=== PATIENT | female | born 1935 | race Caucasian/White ===

== ENCOUNTER 2017-01-14 15:29 | Inpatient (IN) | payer OTHER ==
[~2017-01-14] VITALS: Ht 172.7 cm; Wt 77.3 kg
[~2017-01-14 15:29] MED LIST: ACE650LQ GT; ACET650T79 PO; ALEGRA; ALEN70SO OR; ASCO250T13 PO; ATOR10TA52 PO; BIOTPOW17; BUME1TAB PO; DICL1GEL26 TOP; DIGO0.1262 PO; DIPH25CA39 PO; FENO160T8 PO; FLOXETINE; FLUT250M9; HYDR500T13 PO; INSUINJ47 SC; INSUINJ48 SC; MAGN400T21 PO; METF-312 PO; METO25TA5 PO; MONT10TA23 PO; MULT-224; OME20GT PO; PREG20SO PO; TEMA15CA; TIZA4CAP7 PO; WARF4TAB33 PO; ZALE10CA44 PO; ZALE5CAP PO; [UNRECOGNIZED DRUG - OTHER] PO
[2017-01-14 16:12] LABS: Basophils # (auto) 0 uL; Basophils % (auto) 0.4 % (0.0-2.0); Eosinophils # (auto) 0 uL; Eosinophils % (auto) 0.6 % (0.0-7.0); Hematocrit 36.9 % (36.0-46.0); Hemoglobin 12.1 g/dL (12.2-16.2); Lymphocytes # (auto) 1.4 uL; Lymphocytes % (auto) 17.7 % (10.0-50.0); Mean Corpuscular Hemoglobin 28.7 pg (28.0-32.0); Mean Corpuscular Hgb Conc. 32.6 g/dL (32.0-36.0); Mean Corpuscular Volume 87.9 fL (80.0-100.0); Mean Platelet Volume 7.7 fL (7.4-10.4); Monocytes # (auto) 0.5 uL; Monocytes % (auto) 6.3 % (0.0-12.0); Neutrophils # (auto) 6.1 uL; Platelet Count (auto) 272 10^3/uL (140-450); Red Cell Distribution Width 14.8 % (11.6-16.0); White Blood Cell 8.1 10^3/uL (4.4-10.8)
[2017-01-14] MEDS ORDERED: DILTIAZEM HCL 25 MG/5 ML VIAL IV ONE (16:15)
[2017-01-14 16:30] LABS: Albumin 3.3 g/dL (3.4-5.0); Calcium 8.8 mg/dL (8.5-10.1); Magnesium 2.3 mg/dL (1.6-2.6); Potassium 4.8 mmol/L (3.5-5.1)
[2017-01-14 16:35] LABS: Bilirubin, Total 0.2 mg/dL (0.2-1.0); Total Protein 7.3 g/dL (6.4-8.2)
[2017-01-14] MEDS ORDERED: ACETAMINOPHEN 325 MG TAB PO ONE (16:45)
[2017-01-14 17:11] LABS: Partial Thromboplastin Time 33.4 sec (22.64-33.71)
[2017-01-14 17:12] LABS: INR 1.92 (0.9-1.15); Prothrombin Time 20.7 sec (9.37-12.3)
[2017-01-14] MEDS ORDERED: POTASSIUM CHLORIDE 8 MEQ TAB PO ONE (18:45)
[2017-01-14] MEDS ORDERED: FUROSEMIDE 40 MG/4 ML VIAL IV ONE (18:45)
[2017-01-14] MEDS ORDERED: DIGOXIN 0.125 MG TAB PO ONE (18:45)
[2017-01-14] MEDS ORDERED: ALENDRONATE SODIUM 10 MG TAB PO SCH (19:00)
[2017-01-14] MEDS ORDERED: ALPRAZolam 0.25 MG TAB PO PRN (19:00)
[2017-01-14] MEDS ORDERED: DEXTROSE (50%) 50ML SYRG IV PRN (19:00)
[2017-01-14] MEDS ORDERED: cefTRIAXone 1GM/50ML D5W 50 ML IV ONE (19:00)
[2017-01-14] MEDS ORDERED: NITROGLYCERIN 0.4 MG SL TAB SL PRN (19:15)
[2017-01-14] MEDS ORDERED: MORPHINE SULF INJ 2 MG/ML SYRINGE 1ML IV PRN ×2 (19:15)
[2017-01-14] MEDS ORDERED: ACETAMINOPHEN 325 MG TAB PO PRN (19:15)
[2017-01-14] MEDS ORDERED: ONDANSETRON HCL 4 MG/2 ML VIAL IV PRN (19:15)
[2017-01-14] MEDS ORDERED: DOCUSATE SOD 100 MG CAP PO PRN (19:15)
[2017-01-14] MEDS ORDERED: HYDROcodone-ACET 5/325MG TAB PO PRN (19:15)
[2017-01-14] MEDS ORDERED: TEMAZEPAM 15 MG CAP PO PRN (19:15)
[2017-01-14] MEDS: MULTIPLE VITAMIN TAB PO SCH (19:36)
[2017-01-14] MEDS ORDERED: LOSARTAN POTASSIUM 25 MG TAB PO ONE (19:45)
[2017-01-14] MEDS ORDERED: FLUoxetine HCL 20 MG CAP PO ONE (19:45)
[2017-01-14] MEDS ORDERED: predniSONE 20 MG TAB PO ONE (19:45)
[2017-01-14] MEDS ORDERED: WARFARIN SODIUM 5 MG TAB PO ONE ×2 (20:00→20:15)
[2017-01-14 20:25] LABS: B-Type Natriuretic Peptide 359.44 pg/mL (0-100); Temperature: 23.4 C (20.0-25.0)
[2017-01-14 22:00] VITALS: BP 144/83
[2017-01-14] MEDS: PREGABALIN PO SCH ×2 (22:00→23:39)
[2017-01-14] MEDS: InsuLIN REG 1unit/0.01ml Soln (100units/ml) SC SCH (22:00)
[2017-01-14] MEDS: DRONEDARONE HCL 400 MG TAB PO SCH (22:00)
[2017-01-14] MEDS ORDERED: FAMOTIDINE 20 MG TAB PO SCH (22:00)
[2017-01-14] MEDS: ACCU-CHEK COMFORT CURVE STRIP VI SCH (22:00)
[2017-01-14 22:27] VITALS: BP 144/83
[2017-01-14 22:38] LABS: Lactic Acid w/Reflex 2.2 mmol/L (0.4-2.0)
[2017-01-14 22:59] LABS: REFLEX LACTIC ACID YES OR NO YES
[2017-01-14 23:35] VITALS: BP 127/78
[2017-01-14] MEDS: FLUTICASONE PROP NASAL SPR 0.05 % (50MCG) 16GM EACHNOSTRI SCH (23:36)
[2017-01-14] MEDS: ATORVASTATIN 20 MG TAB PO SCH (23:36)
[2017-01-14] MEDS: DICLOFENAC SODIUM 100 MG PO SCH (23:38)
[2017-01-14] MEDS: SODIUM CHLOR 0.9% PF (SALINE LOCK) 10ML VIAL IV SCH (23:39)
[2017-01-15] VITALS: BP 150/82
[2017-01-15] MEDS: ALBUTEROL SULF 2.5 MG/0.5ML(0.5%) NEB SOLN NEB SCH ×3 (00:37→11:45)
[2017-01-15] MEDS: BUDESONIDE (INHALATION) 0.5 MG/2 ML NEB NEB SCH ×3 (00:37→23:41)
[2017-01-15] MEDS: IPRATROPIUM BROM 0.5 MG/2.5ML INH SOL NEB SCH ×5 (00:37→23:41)
[2017-01-15 03:22] LABS: Urine RBC None Seen /hpf (0 - 4)
[2017-01-15 04:00] VITALS: BP 126/74
[2017-01-15 04:04] LABS: Urine Bilirubin Negative (Negative); Urine Blood Negative /uL (Negative); Urine Color Yellow (Yellow); Urine Ketone Negative (Negative); Urine Nitrite Negative (Negative); Urine Squamous Epithelial Cell FEW /hpf (<5); Urine Urobilinogen Normal (Negative)
[2017-01-15 04:05] LABS: Urine Glucose 3+ mg/dL (Normal)
[2017-01-15] MEDS ORDERED: PRED1PAK8 PO (04:33)
[2017-01-15] MEDS ORDERED: LOSA25TA9 PO (04:33)
[2017-01-15] MEDS ORDERED: METO2.5T11 PO (04:33)
[2017-01-15] MEDS ORDERED: BETH50TA PO (04:33)
[2017-01-15] MEDS ORDERED: DRON400T PO (04:33)
[2017-01-15] MEDS ORDERED: FER325T PO (04:33)
[2017-01-15] MEDS ORDERED: LEVA1.256 IN (04:33)
[2017-01-15] MEDS ORDERED: FLUT50SP13 (04:33)
[2017-01-15] MEDS ORDERED: ALPR0.254 PO (04:33)
[2017-01-15] MEDS ORDERED: HYDR-531 PO (04:33)
[2017-01-15] MEDS ORDERED: CHOL1TAB42 PO (04:33)
[2017-01-15 05:00] LABS: Albumin 3.3 g/dL (3.4-5.0); BUN/Creatinine Ratio 14.2; Calcium 8.5 mg/dL (8.5-10.1); Lactic Acid w/Reflex 2.6 mmol/L (0.4-2.0); Potassium 5.4 mmol/L (3.5-5.1)
[2017-01-15 05:05] LABS: Bilirubin, Total 0.3 mg/dL (0.2-1.0); Total Protein 7.1 g/dL (6.4-8.2)
[2017-01-15 05:08] LABS: Partial Thromboplastin Time 32.8 sec (22.64-33.71)
[2017-01-15 05:14] LABS: INR 1.98 (0.9-1.15); Prothrombin Time 21.4 sec (9.37-12.3)
[2017-01-15 05:23] LABS: REFLEX LACTIC ACID YES OR NO YES
[2017-01-15 06:32] LABS: Basophils # (auto) 0 uL; Basophils % (auto) 0.3 % (0.0-2.0); Eosinophils # (auto) 0 uL; Eosinophils % (auto) 0.1 % (0.0-7.0); Hematocrit 36.4 % (36.0-46.0); Hemoglobin 11.9 g/dL (12.2-16.2); Lymphocytes # (auto) 0.7 uL; Lymphocytes % (auto) 10.1 % (10.0-50.0); Mean Corpuscular Hemoglobin 28.9 pg (28.0-32.0); Mean Corpuscular Hgb Conc. 32.8 g/dL (32.0-36.0); Mean Platelet Volume 8.4 fL (7.4-10.4); Monocytes # (auto) 0.1 uL; Monocytes % (auto) 0.8 % (0.0-12.0); Neutrophils # (auto) 6.6 uL; Neutrophils % (auto) 88.7 % (37.0-80.0); Platelet Count (auto) 241 10^3/uL (140-450); Red Cell Distribution Width 14.5 % (11.6-16.0); White Blood Cell 7.4 10^3/uL (4.4-10.8)
[2017-01-15] MEDS: ACCU-CHEK COMFORT CURVE STRIP VI SCH ×4 (06:38→22:24)
[2017-01-15] MEDS: SODIUM CHLOR 0.9% PF (SALINE LOCK) 10ML VIAL IV SCH ×3 (06:38→23:00)
[2017-01-15] MEDS: INSULIN NPH Isophane (HUMAN) 1unit/0.01ml Susp(100units/ml) SC SCH (06:39)
[2017-01-15] MEDS: InsuLIN REG 1unit/0.01ml Soln (100units/ml) SC SCH ×3 (06:40→17:46)
[2017-01-15] MEDS ORDERED: InsuLIN REG 1unit/0.01ml Soln (100units/ml) SC SCH ×2 (07:00→22:00)
[2017-01-15 07:53] VITALS: BP 120/61
[2017-01-15] MEDS: Boost Glucose Control 8 Ounces PO SCH ×3 (09:10→18:00)
[2017-01-15] MEDS: cefTRIAXone 1GM/50ML D5W 50 ML IV SCH (09:10)
[2017-01-15] MEDS: FERROUS SULFATE 325 MG TAB PO SCH ×2 (09:10→18:47)
[2017-01-15] MEDS: DICLOFENAC SODIUM 100 MG PO SCH (10:00)
[2017-01-15] MEDS: POTASSIUM CHLORIDE 8 MEQ TAB PO SCH (10:00)
[2017-01-15] MEDS ORDERED: DIGOXIN 0.25 MG TAB PO SCH (10:00)
[2017-01-15] MEDS ORDERED: FUROSEMIDE 40 MG/4 ML VIAL IV SCH (10:00)
[2017-01-15] MEDS: PREGABALIN PO SCH (10:00)
[2017-01-15] MEDS: PANTOPRAZOLE 40 MG TAB PO SCH (10:00)
[2017-01-15] MEDS: DRONEDARONE HCL 400 MG TAB PO SCH ×2 (10:00→23:00)
[2017-01-15] MEDS: FLUTICASONE PROP NASAL SPR 0.05 % (50MCG) 16GM EACHNOSTRI SCH ×2 (10:00→23:00)
[2017-01-15] MEDS ORDERED: predniSONE 20 MG TAB PO SCH (10:00)
[2017-01-15] MEDS: FLUoxetine HCL 20 MG CAP PO SCH (10:35)
[2017-01-15] MEDS: MULTIPLE VITAMIN TAB PO SCH (10:36)
[2017-01-15] MEDS: LOSARTAN POTASSIUM 25 MG TAB PO SCH (10:37)
[2017-01-15 11:54] VITALS: BP 133/76
[2017-01-15] MEDS: AZITHROMYCIN 500MG/D5W 250ML 250 ML IV SCH (13:00)
[2017-01-15 16:00] VITALS: BP 160/80
[2017-01-15] MEDS ORDERED: WARFARIN SODIUM 5 MG TAB PO ONE (17:00)
[2017-01-15] MEDS: FUROSEMIDE 40 MG/4 ML VIAL IV SCH (18:00)
[2017-01-15] MEDS ORDERED: INSULIN NPH Isophane (HUMAN) 1unit/0.01ml Susp(100units/ml) SC SCH (18:00)
[2017-01-15] MEDS ORDERED: DEXTROSE (50%) 50ML SYRG IV PRN (19:00)
[2017-01-15 20:00] VITALS: BP 130/72
[2017-01-15] MEDS ORDERED: INSULIN DETEMIR(LEVEMIR) 1unit/0.01ml Soln (100units/ml) SC ONE (21:30)
[2017-01-15] MEDS ORDERED: METOPROLOL TARTRATE 50 MG TAB PO SCH (22:00)
[2017-01-15] MEDS: ATORVASTATIN 20 MG TAB PO SCH (23:00)
[2017-01-15] MEDS: PREGABALIN CAPSULE 75 MG CAP PO SCH (23:00)
[2017-01-15] MEDS: METOPROLOL TARTRATE 50 MG TAB PO SCH (23:00)
[2017-01-15] MEDS: VOLTAREN 1% GEL TOP SCH (23:41)
[2017-01-15] MEDS: LEVALBUTEROL HCL 1.25 MG/3 ML NEB NEB SCH (23:41)
[2017-01-16] VITALS: BP 158/80
[2017-01-16 04:00] VITALS: BP 117/57
[2017-01-16] MEDS: SODIUM CHLOR 0.9% PF (SALINE LOCK) 10ML VIAL IV SCH (06:00)
[2017-01-16] MEDS: IPRATROPIUM BROM 0.5 MG/2.5ML INH SOL NEB SCH (06:21)
[2017-01-16] MEDS: LEVALBUTEROL HCL 1.25 MG/3 ML NEB NEB SCH ×2 (06:21→09:44)
[2017-01-16 06:22] LABS: Basophils # (auto) 0.1 uL; Basophils % (auto) 0.6 % (0.0-2.0); Eosinophils # (auto) 0 uL; Eosinophils % (auto) 0.1 % (0.0-7.0); Hematocrit 33.5 % (36.0-46.0); Lymphocytes # (auto) 2.3 uL; Lymphocytes % (auto) 18.1 % (10.0-50.0); Mean Corpuscular Hemoglobin 28.8 pg (28.0-32.0); Mean Corpuscular Volume 87.3 fL (80.0-100.0); Mean Platelet Volume 8.1 fL (7.4-10.4); Monocytes # (auto) 0.8 uL; Monocytes % (auto) 6.4 % (0.0-12.0); Neutrophils # (auto) 9.5 uL; Neutrophils % (auto) 74.8 % (37.0-80.0); Platelet Count (auto) 252 10^3/uL (140-450); Red Cell Distribution Width 14.3 % (11.6-16.0); White Blood Cell 12.7 10^3/uL (4.4-10.8)
[2017-01-16] MEDS: ACCU-CHEK COMFORT CURVE STRIP VI SCH ×2 (06:31→12:11)
[2017-01-16] MEDS: InsuLIN REG 1unit/0.01ml Soln (100units/ml) SC SCH ×2 (06:38→12:11)
[2017-01-16] MEDS: FUROSEMIDE 40 MG/4 ML VIAL IV SCH (06:39)
[2017-01-16] MEDS: INSULIN NPH Isophane (HUMAN) 1unit/0.01ml Susp(100units/ml) SC SCH (06:42)
[2017-01-16 06:44] LABS: Calcium 8.8 mg/dL (8.5-10.1); Magnesium 2.2 mg/dL (1.6-2.6)
[2017-01-16 06:46] LABS: BUN/Creatinine Ratio 21.5
[2017-01-16 07:51] VITALS: BP 127/52
[2017-01-16] MEDS: FERROUS SULFATE 325 MG TAB PO SCH (08:06)
[2017-01-16] MEDS: Boost Glucose Control 8 Ounces PO SCH (08:07)
[2017-01-16 08:28] LABS: Partial Thromboplastin Time 30.3 sec (22.64-33.71)
[2017-01-16 08:30] LABS: INR 2.27 (0.9-1.15); Prothrombin Time 24.5 sec (9.37-12.3)
[2017-01-16] MEDS: cefTRIAXone 1GM/50ML D5W 50 ML IV SCH (08:38)
[2017-01-16] MEDS: BUDESONIDE (INHALATION) 0.5 MG/2 ML NEB NEB SCH (09:44)
[2017-01-16] MEDS: PREGABALIN CAPSULE 75 MG CAP PO SCH (10:00)
[2017-01-16] MEDS ORDERED: DIGOXIN 0.125 MG TAB PO SCH (10:00)
[2017-01-16] MEDS: DRONEDARONE HCL 400 MG TAB PO SCH (10:00)
[2017-01-16] MEDS: PANTOPRAZOLE 40 MG TAB PO SCH (10:10)
[2017-01-16] MEDS: FLUTICASONE PROP NASAL SPR 0.05 % (50MCG) 16GM EACHNOSTRI SCH (10:11)
[2017-01-16] MEDS: AZITHROMYCIN 500MG/D5W 250ML 250 ML IV SCH (10:11)
[2017-01-16] MEDS: METOPROLOL TARTRATE 50 MG TAB PO SCH (10:12)
[2017-01-16] MEDS: FLUoxetine HCL 20 MG CAP PO SCH (10:13)
[2017-01-16] MEDS: MULTIPLE VITAMIN TAB PO SCH (10:13)
[2017-01-16] MEDS: POTASSIUM CHLORIDE 8 MEQ TAB PO SCH (10:13)
[2017-01-16] MEDS: LOSARTAN POTASSIUM 25 MG TAB PO SCH (10:14)
[2017-01-16] MEDS: VOLTAREN 1% GEL TOP SCH (10:14)
[2017-01-16 12:00] VITALS: BP 137/42
[2017-01-16 13:11] VITALS: BP 137/42
[2017-01-16 16:00] VITALS: BP 103/65
[2017-01-16] MEDS ORDERED: WARFARIN SODIUM 2 MG TAB PO ONE (17:00)
== END 2017-01-16 14:10 | disposition home health service (06) | DRG 308 ==
LOC: EDBD 15:29 → ER 15:34 → TELE 15:35 → DOU IN ICU 21:26
PROVIDERS: ADMIT Internal Medicine; ATTEND Family Medicine
DX: I48.91 Unspecified atrial fibrillation (principal); I50.43 Acute on chronic combined systolic (congestive) and diastolic (congestive) heart failure; J18.9 Pneumonia, unspecified organism; J45.901 Unspecified asthma with (acute) exacerbation; J44.1 Chronic obstructive pulmonary disease with (acute) exacerbation; D68.9 Coagulation defect, unspecified; E44.1 Mild protein-calorie malnutrition; I13.2 Hypertensive heart and chronic kidney disease with heart failure and with stage 5 chronic kidney disease, or end stage renal disease; J44.0 Chronic obstructive pulmonary disease with (acute) lower respiratory infection; N18.4 Chronic kidney disease, stage 4 (severe); I48.92 Unspecified atrial flutter; J20.9 Acute bronchitis, unspecified; E78.5 Hyperlipidemia, unspecified; E10.21 Type 1 diabetes mellitus with diabetic nephropathy; Z95.0 Presence of cardiac pacemaker; E10.22 Type 1 diabetes mellitus with diabetic chronic kidney disease; E10.65 Type 1 diabetes mellitus with hyperglycemia; I48.2 Chronic atrial fibrillation; Z83.3 Family history of diabetes mellitus; Z80.9 Family history of malignant neoplasm, unspecified; Z82.49 Family history of ischemic heart disease and other diseases of the circulatory system
CPT/HCPCS: 36415; 71010; 80048; 80053; 81001; 82962; 83036; 83605; 83735; 83880; 84443; 84484; 85025; 85610; 85730; 87040; 87081; 87086; 93005; 93306; 94640; 96374; 96375; 97001; 99291; J0696; J1815

== ENCOUNTER 2019-08-22 19:28 | Emergency (ER) | payer OTHER ==
[~2019-08-22] VITALS: Ht 157.5 cm; Wt 72.6 kg
[~2019-08-22 19:28] MED LIST changes: -ACE650LQ GT; -ACET650T79 PO; -ALEGRA; +ALPR0.254 PO; +BETH50TA2 PO; -BUME1TAB PO; +BUME1TAB3 PO; +CHOL1TAB42 PO; +DRON400T PO; +FER325T PO; -FLUT250M9; +FLUT50SP13; +HYDR-531 PO; -HYDR500T13 PO; +LEVA1.256 IN; +LOSA25TA38 PO; -METF-312 PO; +METF-370 PO; +METO2.5T11 PO; -MULT-224; +PRED1PAK8 PO; -TEMA15CA; -ZALE5CAP PO; -[UNRECOGNIZED DRUG - OTHER] PO
[2019-08-22] MEDS ORDERED: DEXTROSE 10% 1,000 ML IV ONE (20:45)
[2019-08-22 21:06] LABS: Basophils # (auto) 0 uL; Basophils % (auto) 0.3 % (0.0-2.0); Eosinophils # (auto) 0.1 uL; Eosinophils % (auto) 0.9 % (0.0-7.0); Hematocrit 37.3 % (36.0-46.0); Hemoglobin 12.5 g/dL (12.2-16.2); Lymphocytes % (auto) 18.9 % (10.0-50.0); Mean Corpuscular Hemoglobin 31.1 pg (28.0-32.0); Mean Corpuscular Hgb Conc. 33.4 g/dL (32.0-36.0); Monocytes # (auto) 0.8 uL; Monocytes % (auto) 7.2 % (0.0-12.0); Neutrophils # (auto) 7.8 uL; Neutrophils % (auto) 72.7 % (37.0-80.0); Platelet Count (auto) 145 10^3/uL (140-450); Red Blood Cells 4.01 10^6/uL (4.0-5.20); Red Cell Distribution Width 14.2 % (11.8-14.3); White Blood Cell 10.8 10^3/uL (4.4-10.8)
[2019-08-22 21:19] LABS: INR 1.07 (0.9-1.15); Partial Thromboplastin Time 21.8 sec (23.64-32.05)
[2019-08-22 21:23] LABS: Albumin 3.2 g/dL (3.4-5.0); Calcium 7.9 mg/dL (8.5-10.1); Potassium 3.1 mmol/L (3.5-5.1)
[2019-08-22 21:25] LABS: BUN/Creatinine Ratio 25.7; Bilirubin, Total 0.4 mg/dL (0.2-1.0); Total Protein 6.3 g/dL (6.4-8.2)
[2019-08-22] MEDS ORDERED: POTASSIUM EFFERVESENT TAB 25 MEQ PO ONE (21:45)
[2019-08-22] MEDS ORDERED: POTASSIUM CHL 20 Meq TABLET PO ONE (21:45)
[2019-08-22] MEDS ORDERED: DEXTROSE (50%) 50ML SYRG IV ONE (21:45)
[2019-08-23 02:02] VITALS: BP 109/74
== END 2019-08-23 02:25 | disposition short-term general hospital (02) ==
LOC: EDBD 19:28 → ER 19:33
DX: E11.649 Type 2 diabetes mellitus with hypoglycemia without coma (principal); E11.65 Type 2 diabetes mellitus with hyperglycemia; R40.4 Transient alteration of awareness; E87.6 Hypokalemia; E86.0 Dehydration; I48.91 Unspecified atrial fibrillation; I13.2 Hypertensive heart and chronic kidney disease with heart failure and with stage 5 chronic kidney disease, or end stage renal disease; E11.22 Type 2 diabetes mellitus with diabetic chronic kidney disease; N18.6 End stage renal disease; I50.9 Heart failure, unspecified; E78.5 Hyperlipidemia, unspecified; Z79.899 Other long term (current) drug therapy
CPT/HCPCS: 36415; 70450; 71045; 80053; 82962; 83880; 84484; 85025; 85610; 85730; 93005; 96360; 96361; 99285; J7042

== ENCOUNTER 2020-01-29 04:32 | Inpatient (IN) | payer OTHER ==
[~2020-01-29] VITALS: Ht 157.5 cm; Wt 80.0 kg
[2020-01-29] VITALS (54 sets, daily range): BP systolic 89–119; BP diastolic 39–64
[~2020-01-29 04:32] MED LIST changes: +GABA100C9 PO; -LEVA1.256 IN; +LEVA1.256 NEB
[2020-01-29] MEDS ORDERED: ETOMIDATE (2MG/ML) 20ML VIAL IV ONE ×2 (04:46→05:00)
[2020-01-29] MEDS ORDERED: SUCCINYLCHOLINE CHLORIDE 20 MG/ML 10ML VIAL IV ONE ×2 (04:47→05:00)
[2020-01-29] MEDS ORDERED: methylPREDNISolone SOD SUCC 125 MG/2 ML VL ONE (04:54)
[2020-01-29] MEDS ORDERED: methylPREDNISolone SOD SUCC 125 MG/2 ML VL IV ONE (05:00)
[2020-01-29] MEDS ORDERED: dilTIAZem HCL 50 MG/10 ML VIAL IV ONE (05:09)
[2020-01-29] MEDS ORDERED: MIDAZOLAM DRIP 50 mg/50mL 50 ML IV ONE ×2 (05:12→08:00)
[2020-01-29] MEDS ORDERED: SODIUM CHLORIDE 0.9% 1,000 ML IV ONE (05:21)
[2020-01-29] MEDS ORDERED: dilTIAZem 25 MG/5 ML VIAL IV ONE (05:30)
[2020-01-29] MEDS ORDERED: levoFLOXacin 750MG 150 ML IV ONE (05:30)
[2020-01-29] MEDS ORDERED: DIGOXIN (250MCG/ML) 2 ML AMPULE IV ONE (06:00)
[2020-01-29] MEDS ORDERED: ACETAMINOPHEN 650 MG RECT SUPP PR ONE (06:45)
[2020-01-29] MEDS ORDERED: AZITHROMYCIN 500MG/ 250ML 250 ML IV ONE (07:15)
[2020-01-29 07:29] LABS: Basophils # (auto) 0.2 10 ^3/uL (0-0.2); Eosinophils # (auto) 0 10 ^3/uL (0-0.8); Eosinophils % (auto) 0.2 % (0.0-7.0); Hematocrit 37.4 % (36.0-46.0); Hemoglobin 12.1 g/dL (12.2-16.2); Lymphocytes # (auto) 1.3 10 ^3/uL (0.4-5.4); Lymphocytes % (auto) 6.5 % (10.0-50.0); Mean Corpuscular Hemoglobin 28.8 pg (28.0-32.0); Mean Corpuscular Hgb Conc. 32.4 g/dL (32.0-36.0); Mean Corpuscular Volume 89.1 fL (80.0-100.0); Monocytes # (auto) 1.8 10 ^3/uL (0-1.3); Monocytes % (auto) 9.1 % (0.0-12.0); Neutrophils # (auto) 16.4 10 ^3/uL (1.6-8.6); Neutrophils % (auto) 83.2 % (37.0-80.0); Nucleated Red Blood Cells % 0.1 %; Platelet Count (auto) 393 10^3/uL (140-450); Red Cell Distribution Width 16.9 % (11.8-14.3); White Blood Cell 19.7 10^3/uL (4.4-10.8)
[2020-01-29] MEDS ORDERED: SODIUM CHLORIDE 0.9% 500 ML IV ONE (07:30)
[2020-01-29] MEDS: cefTRIAXone 1GM/50ML D5W 50 ML IV ONE ×2 (07:33→08:00)
[2020-01-29 07:47] LABS: INR 1.13 (0.9-1.15); Partial Thromboplastin Time 22.9 sec (23.64-32.05)
[2020-01-29] MEDS: MIDAZOLAM DRIP 50 mg/50mL 50 ML IV SCH ×2 (08:01→12:50)
[2020-01-29 08:23] LABS: Lactic Acid w/Reflex 2.6 mmol/L (0.4-2.0)
[2020-01-29 09:50] LABS: Albumin 2.8 g/dL (3.4-5.0); Calcium 8.3 mg/dL (8.5-10.1); Magnesium 2.3 mg/dL (1.6-2.6)
[2020-01-29 09:55] LABS: BUN/Creatinine Ratio 15.4; Bilirubin, Total 1.1 mg/dL (0.2-1.0); Total Protein 6.8 g/dL (6.4-8.2)
[2020-01-29] MEDS ORDERED: levoFLOXacin 500MG 100 ML IV SCH (10:00)
[2020-01-29] MEDS: PROPOFOL 100 ML IV SCH (10:25)
[2020-01-29] MEDS ORDERED: FUROSEMIDE 20 MG/2 ML VIAL IV ONE (10:45)
[2020-01-29] MEDS ORDERED: NITROGLYCERIN 0.4 MG SL TAB SL PRN (11:00)
[2020-01-29] MEDS ORDERED: MORPHINE SULF INJ 2 MG/ML SYRINGE 1ML IV PRN (11:00)
[2020-01-29] MEDS: LINEZOLID 600MG/300ML 300 ML IV SCH ×2 (11:07→22:15)
[2020-01-29] MEDS ORDERED: PROMETHAZINE HCL 25 MG/ML 1ML IV PRN (11:15)
[2020-01-29] MEDS ORDERED: ALBUTEROL SULF 2.5 MG/0.5ML(0.5%) NEB SOLN NEB PRN (11:15)
[2020-01-29] MEDS ORDERED: DEXTROSE (50%) 50ML SYRG IV PRN (11:30)
[2020-01-29] MEDS ORDERED: AMIODARONE HCL 200 MG TAB NG ONE (11:30)
[2020-01-29 11:41] LABS: Urine Bacteria FEW /hpf (None Seen); Urine Blood Negative /uL (Negative); Urine Specific Gravity 1.011 (1.001-1.035); Urine WBC 2 /hpf (0 - 5)
[2020-01-29] MEDS ORDERED: levoFLOXacin 500MG 100 ML IV ONE (11:45)
[2020-01-29 11:56] LABS: Alcohol, Urine < 3.0 mg/dL (0-5); Amphetamine Screen, Urine NEGATIVE (NEGATIVE); Barbiturate Scree,Urine NEGATIVE (NEGATIVE); Benzodiazephine Screen, Urine NEGATIVE (NEGATIVE); Cannabinoid Screen, Urine NEGATIVE (NEGATIVE); Cocaine Screen, Urine NEGATIVE (NEGATIVE); Opiate Scree,Urine NEGATIVE (NEGATIVE); Phencyclidine Screen, Urine NEGATIVE (NEGATIVE)
--- NOTE | 2020-01-29 12:01 | NUR ---
Admit to ICU from ER on vent BEN MOURA admitted to ICU via gurney on cardiac surgeon, intubated and being bagged by Respiratory Therapist. Patient transfered to bed, connected to mechanical ventilator by therapist, THEODORE at bedside. Patient connected to ICU monitoring, weighed by Cris bains, primary RN, RT CONNECTED TO ventilator. NOTE:
[2020-01-29] MEDS: methylPREDNISolone SOD SUCC 40 MG/ML VL IV SCH ×2 (12:26→23:15)
[2020-01-29] MEDS: ACCU-CHEK COMFORT CURVE STRIP VI SCH ×4 (12:27→23:43)
[2020-01-29] MEDS: InsuLIN REG 1unit/0.01ml Soln (100units/ml) SC SCH ×4 (12:27→23:43)
--- NOTE | 2020-01-29 13:21 | NUR ---
DR. KNAPP Provider/Hospitalist at bedside. GAVE UPDATE ON PT. NEW ORDERS RECEIVED.
--- NOTE | 2020-01-29 13:25 | NUR ---
TECH AT BS FOR US RT. LEG.
[2020-01-29] MEDS: fentaNYL Drip 2500mCg/250mlNS 250 ML IV SCH (13:56)
[2020-01-29] MEDS: ENOXAPARIN SOD 80 MG/0.8ML SYRINGE SC SCH (13:57)
[2020-01-29] MEDS: IPRATROPIUM BROM 0.5 MG/2.5ML INH SOL NEB SCH ×2 (14:03→21:59)
[2020-01-29] MEDS: ALBUTEROL SULF 2.5 MG/0.5ML(0.5%) NEB SOLN NEB SCH ×2 (14:03→21:59)
--- NOTE | 2020-01-29 14:35 | NUR ---
TECH AT BS FOR 2D ECHO.
--- NOTE | 2020-01-29 17:30 | NUR ---
PT. REMAINS INTUBATED AND SEDATED ON VENT. RESTING WITH EYES CLOSED. NO SIGNS OF DISTRESS.
[2020-01-29] MEDS: AMIODARONE HCL 200 MG TAB NG SCH (22:17)
[2020-01-30] VITALS (96 sets, daily range): BP systolic 91–129; BP diastolic 35–102
--- NOTE | 2020-01-30 03:00 | NUR ---
COMPLETE BATH AND PARTIAL SOLA CHANGE, PT WAKING UP AND ATTEMPT TO EXTUBATE SELF, BITE BLOCK PLACED BY RT, PROPOFOL TITRATED TO 10 THEN 15MCG/KG/MIN
[2020-01-30 04:07] LABS: Basophils # (auto) 0 10 ^3/uL (0-0.2); Eosinophils # (auto) 0 10 ^3/uL (0-0.8); Hematocrit 31.7 % (36.0-46.0); Hemoglobin 10.3 g/dL (12.2-16.2); Lymphocytes # (auto) 0.6 10 ^3/uL (0.4-5.4); Lymphocytes % (auto) 3.8 % (10.0-50.0); Mean Corpuscular Hemoglobin 28.8 pg (28.0-32.0); Mean Corpuscular Hgb Conc. 32.6 g/dL (32.0-36.0); Mean Corpuscular Volume 88.4 fL (80.0-100.0); Monocytes # (auto) 0.6 10 ^3/uL (0-1.3); Monocytes % (auto) 3.4 % (0.0-12.0); Neutrophils # (auto) 15.5 10 ^3/uL (1.6-8.6); Neutrophils % (auto) 92.8 % (37.0-80.0); Nucleated Red Blood Cells % 0.1 %; Platelet Count (auto) 196 10^3/uL (140-450); Red Blood Cells 3.59 10^6/uL (4.0-5.20); Red Cell Distribution Width 16.1 % (11.8-14.3); White Blood Cell 16.7 10^3/uL (4.4-10.8)
[2020-01-30 04:27] LABS: Potassium 3.9 mmol/L (3.5-5.1)
[2020-01-30 04:28] LABS: Albumin 2.8 g/dL (3.4-5.0); BUN/Creatinine Ratio 20.2; Calcium 8.1 mg/dL (8.5-10.1)
[2020-01-30 04:31] LABS: Bilirubin, Total 0.6 mg/dL (0.2-1.0); Total Protein 7.3 g/dL (6.4-8.2)
[2020-01-30] MEDS: PROPOFOL 100 ML IV SCH ×3 (05:55→17:31)
[2020-01-30] MEDS: InsuLIN REG 1unit/0.01ml Soln (100units/ml) SC SCH ×6 (06:00→23:48)
[2020-01-30] MEDS: ACCU-CHEK COMFORT CURVE STRIP VI SCH ×6 (06:26→23:48)
[2020-01-30] MEDS: IPRATROPIUM BROM 0.5 MG/2.5ML INH SOL NEB SCH ×3 (06:33→22:23)
[2020-01-30] MEDS: ALBUTEROL SULF 2.5 MG/0.5ML(0.5%) NEB SOLN NEB SCH ×3 (06:33→22:23)
--- NOTE | 2020-01-30 07:25 | NUR ---
INITIAL CONTACT Report received from Manuel WESLEY, care assumed. Patient intubated on Ventilator, tolerating well a this time. When stimulated patient moved upper and lower extremities, reaches for ETT, but does not open eyes. No distress noted. Patient oriented to location and situation. Pulses palpable radial and pedal bilaterally. Vitals remain stable at this time. Lungs clear, oxygen saturation 96%. Cassidy catheter present, patent, and secured below bladder. See skin/wound assessment and IV spreadsheet. Alarms in place. Bed locked in lowest position. All extremities off loaded on pillows with frequent turning schedule. Will continue to monitor.
--- NOTE | 2020-01-30 07:45 | NUR ---
IV INSERTION IV on right arm appeared to be red and puffy. New IV access obtained, via clean sterile technique by inserting 20 gauge catheter at right hand and 20 gauge catheter at left hand. IV's secured properly. No trauma to site. Patient tolerated well.
--- NOTE | 2020-01-30 08:10 | NUR ---
TEMPERATURE Rectal temperature probe place, temperature 98.1.
[2020-01-30] MEDS ORDERED: levoFLOXacin 500MG 100 ML IV SCH (09:00)
[2020-01-30] MEDS: ASPirin 81 mg TAB NG SCH (09:47)
[2020-01-30] MEDS: LINEZOLID 600MG/300ML 300 ML IV SCH ×2 (09:47→21:36)
[2020-01-30] MEDS: ENOXAPARIN SOD 80 MG/0.8ML SYRINGE SC SCH (09:47)
[2020-01-30] MEDS: AMIODARONE HCL 200 MG TAB NG SCH ×2 (09:48→21:37)
--- NOTE | 2020-01-30 10:40 | NUR ---
FAMILY Patient daughter Nona called for update. All questions and concerns addressed.
--- NOTE | 2020-01-30 10:47 | NUR ---
DIETARY Cullet Washer at bedside.
--- NOTE | 2020-01-30 11:29 | NUR ---
Est energy needs 3728-5156 kcal (25-30 kcal/kg IBW) Est protein needs 80-113g (1-1.4g/kg BW COPD). Will reassess prn Addendum: 01/30/20 at [address] Amended: Links added.
[2020-01-30] MEDS: methylPREDNISolone SOD SUCC 40 MG/ML VL IV SCH ×2 (11:34→23:26)
--- NOTE | 2020-01-30 12:30 | NUR ---
MD VISIT at bedside assessing patient. reviewing medical chart.
--- NOTE | 2020-01-30 12:40 | NUR ---
WOUND CARE CONSULT Stacy WESLEYlong term care social worker nurse at bedside for skin assessment.
--- NOTE | 2020-01-30 13:00 | NUR ---
WOUND CARE NOTE: IN TO SEE PATIENT AT THIS TIME PER WOUND CARE CONSULT REQUEST. PATIENT WAS ADMITTED TO [facility] WITH DIAGNOSIS OF ACUTE RESPIRATORY FAILURE, PNA, HEART FAILURE. SHE HAS CURRENT WILBERT SCORE OF 11. PATIENT IS NOTED TO BE WOUND FREE AT THIS TIME. SHE IS NOTED TO HAVE A PALE RED SCAR TO INTRAGLUTEAL FOLD AREA OF SACRUM. WOUND PHOTO TAKEN FOR REFERENCE AT THIS TIME. NO OTHER SKIN INTEGRITY ISSUES SEEN, CURRENTLY. RECOMMEND: FREQUENT TURN SCHEDULE Q 2 HOURS, PRN CONDITION PERMITS, WITH PRESSURE REDISTRIBUTION USING PILLOWS/WEDGES, BID/PRN APPLICATION ZGUARD, OPTIFOAM GENTLE SACRAL DRESSING PREVENTATIVE, DIETARY CONSULT, CONTINUED MONITORING BY WOUND CARE TEAM. Addendum: 01/30/20 at 1609 by Debbi Huertas RN Amended: Links added.
[2020-01-30] MEDS: fentaNYL Drip 2500mCg/250mlNS 250 ML IV SCH (13:20)
--- NOTE | 2020-01-30 15:11 | NUR ---
MD VISIT at bedside for Cardiology consult.
--- NOTE | 2020-01-30 16:55 | NUR ---
NEURO While performing linen change, patient became agitated and restless. Attempting to sit up and roll on side. Eyes completely open but patient not tracking or following commands. Elevated respiratory rate, heart rate increased to 120-140's atrial fibrillation. Patient also started to desaturate to 82%, 100% oxygen boost given. Sedation increased, patient instructed to stay in bed and decrease respiratory rate. Eventually patient returned to baseline vitals once no longer stimulated.
--- NOTE | 2020-01-30 18:22 | NUR ---
Respiratory note: RECEIVED PT ON VENT V20. ETT TO VENT. VENT CONNECTED TO RED OUTLET AND O2 SOURCE ALARMS ARE SET AND AUDIBLE. AMBU BAG AND MASK AT BEDSIDE. BS ARE FINE COURSE SXD MODERATE COURSE THICK RENEE. WILL CONTINUE TO MONITOR Q2H AND NEEDED.RT NAME AND PAGER ASSIGNMENT WRITTEN ON PTS ROOM BOARD
--- NOTE | 2020-01-30 18:54 | NUR ---
MD VISIT at bedside.
--- NOTE | 2020-01-30 19:20 | NUR ---
REPORT Report given to Bony WESLEY, care endorsed.
--- NOTE | 2020-01-30 19:30 | NUR ---
OPENING SHIFT RECEIVED REPORT FROM DAY SHIFT RN. ASSUMED CARE OF PATIENT. PATIENT INTUBATED AND SEDATED WITH NO SIGNS OR SYMPTOMS OF SOB, PAIN OR DISTRESS. POSITIVE COUGH AND GAG. RIGHT UPPER CHEST IV, RIGHT HAND IV, LEFT WRIST IV, LEFT SHOULDER IV - CLEAN/DRY/INTACT. LAUREANO HUNG TO GRAVITY. REPOSITIONED FOR COMFORT. BED IN LOWEST POSITION, SIDE RAILS UP X2. SEDATION: FENTANYL - 150MCG/HR PROPOFOL - 30MCCG/KG/MIN WILL CONTINUE TO MONITOR.
--- NOTE | 2020-01-30 20:23 | NUR ---
Respiratory note: ROUTINE VENT CHECK DONE AT THIS TIME. CURRENT TEMP READING 98.4F. NO CHANGES DONE WILL CONTINUE TO MONITOR Q2H AND NEEDED.
--- NOTE | 2020-01-30 22:15 | NUR ---
SPOKE WITH FAMILY (BASILIO) PASSWORD VERIFIED, UPDATED FAMILY ON PLAN OF CARE. ALL QUESTIONS ANSWERED AND ADDRESSED.
--- NOTE | 2020-01-30 22:23 | NUR ---
Respiratory note: ROUTINE VENT CHECK DONE AT THIS TIME. BS ARE COURSE SXD MODERATE THICK BROWN SECRETIONS VIA ETT. MED NEB TX GIVEN INLINE WITHOUT ADVERSE REACTION NEEDED. CURRENT TEMP READING 98.4F. NO CHANGES DONE WILL CONTINUE TO MONITOR Q2H AND NEEDED.
[2020-01-31] VITALS (91 sets, daily range): BP systolic 97–173; BP diastolic 40–93
--- NOTE | 2020-01-31 00:26 | NUR ---
Respiratory note: ROUTINE VENT CHECK DONE AT THIS TIME. CURRENT TEMP READING 98.4F. NO CHANGES DONE WILL CONTINUE TO MONITOR Q2H AND NEEDED.
--- NOTE | 2020-01-31 02:10 | NUR ---
MORNING CARE PERFORMED MORNING CARE WITH CHG WIPES AND WASH CLOTHS TO TO FACE. PARTIAL LINEN CHANGE AND GOWN CHANGED. REPOSITIONED FOR COMFORT. SKIN REASSESSED AT THIS TIME. ORAL AND LAUREANO CARE PERFORMED. BED IN LOWEST POSITION, SIDE RAILS UP X2. WILL CONTINUE TO MONITOR.
[2020-01-31] MEDS: DexMEDEtomidine 400 MCG in D5W 5% 96 ML IV SCH ×2 (02:14→18:55)
--- NOTE | 2020-01-31 02:28 | NUR ---
Respiratory note: ROUTINE VENT CHECK DONE AT THIS TIME. CURRENT TEMP READING 98.8F. NO CHANGES DONE WILL CONTINUE TO MONITOR Q2H AND NEEDED.
[2020-01-31] MEDS: ACCU-CHEK COMFORT CURVE STRIP VI SCH ×5 (04:06→20:19)
[2020-01-31] MEDS: InsuLIN REG 1unit/0.01ml Soln (100units/ml) SC SCH ×5 (04:06→20:19)
[2020-01-31] MEDS: fentaNYL Drip 2500mCg/250mlNS 250 ML IV SCH (04:30)
[2020-01-31 05:05] LABS: Basophils # (auto) 0 10 ^3/uL (0-0.2); Basophils % (auto) 0.1 % (0.0-2.0); Eosinophils # (auto) 0 10 ^3/uL (0-0.8); Eosinophils % (auto) 0.1 % (0.0-7.0); Hematocrit 34.2 % (36.0-46.0); Hemoglobin 10.4 g/dL (12.2-16.2); Lymphocytes # (auto) 0.4 10 ^3/uL (0.4-5.4); Lymphocytes % (auto) 3.3 % (10.0-50.0); Mean Corpuscular Hemoglobin 28.1 pg (28.0-32.0); Mean Corpuscular Hgb Conc. 30.4 g/dL (32.0-36.0); Mean Corpuscular Volume 92.4 fL (80.0-100.0); Monocytes # (auto) 0.5 10 ^3/uL (0-1.3); Monocytes % (auto) 4.2 % (0.0-12.0); Neutrophils # (auto) 10.4 10 ^3/uL (1.6-8.6); Neutrophils % (auto) 92.3 % (37.0-80.0); Platelet Count (auto) 193 10^3/uL (140-450); Red Blood Cells 3.71 10^6/uL (4.0-5.20); Red Cell Distribution Width 16.5 % (11.8-14.3); White Blood Cell 11.3 10^3/uL (4.4-10.8)
[2020-01-31 05:23] LABS: Potassium 4.1 mmol/L (3.5-5.1)
[2020-01-31 05:35] LABS: Albumin 2.9 g/dL (3.4-5.0); BUN/Creatinine Ratio 27.4; Bilirubin, Total 0.6 mg/dL (0.2-1.0); Calcium 8.2 mg/dL (8.5-10.1); Magnesium 2.7 mg/dL (1.6-2.6); Total Protein 7.5 g/dL (6.4-8.2)
[2020-01-31] MEDS: ALBUTEROL SULF 2.5 MG/0.5ML(0.5%) NEB SOLN NEB SCH ×3 (06:11→22:28)
[2020-01-31] MEDS: IPRATROPIUM BROM 0.5 MG/2.5ML INH SOL NEB SCH ×3 (06:11→22:28)
[2020-01-31] MEDS ORDERED: FUROSEMIDE 40 MG/4 ML VIAL IV ONE (07:15)
--- NOTE | 2020-01-31 07:16 | NUR ---
END OF SHIFT REPORT GIVEN TO DAY SHIFT RN. CARE ENDORSED.
--- NOTE | 2020-01-31 07:35 | NUR ---
INITIAL CONTACT Report received from Bony WESLEY, care assumed. Patient intubated on Ventilator, tolerating well a this time. When stimulated patient moved upper and lower extremities, reaches for ETT. Patient does not follow commands at this time. Sedation being titrated off for Cpap trial this morning. No distress noted. Pulses palpable radial and pedal bilaterally. SCD's on bilateral lower extremities. Vitals remain stable at this time. Lungs clear, oxygen saturation 98%. When patient wakes up she tends to have a short period of desaturation due to holding breaths or tachypnea. Cassidy catheter present, patent, and secured below bladder. See skin/wound assessment and IV spreadsheet. Alarms in place. Bed locked in lowest position. All extremities off loaded on pillows with frequent turning schedule. Will continue to monitor.
[2020-01-31] MEDS: ENOXAPARIN SOD 80 MG/0.8ML SYRINGE SC SCH (09:30)
[2020-01-31] MEDS: LINEZOLID 600MG/300ML 300 ML IV SCH ×2 (09:30→22:00)
[2020-01-31] MEDS: AMIODARONE HCL 200 MG TAB NG SCH ×2 (09:31→22:00)
[2020-01-31] MEDS: ASPirin 81 mg TAB NG SCH (09:31)
--- NOTE | 2020-01-31 10:32 | NUR ---
Respiratory note: PT PLACED ON CPAP TRIAL. PT IS AWAKE AND TRYING TO SIT UP. RN AT BEDSIDE TO MONITOR PT. PT TOLERATING CPAP TRIAL WELL. ABG AND WEANING PARAMETERS TO BE OBTAINED.
--- NOTE | 2020-01-31 10:35 | NUR ---
CPAP TRIAL Patient awake and alert but not oriented at this time. Patient no following commands. Patient trying to sit up and climb out of bed. Frequent reorientation and redirection being used. Patient tolerating cpap trial. Titrating down Precedex drip to allow for better tidal volumes.
--- NOTE | 2020-01-31 10:45 | NUR ---
RESTLESS Patient continues to be confused, attempting to sit up and get out of bed despite redirection. RN staying at bedside to prevent patient from causing harm to self. Patient tolerating Cpap trial.
--- NOTE | 2020-01-31 11:10 | NUR ---
IV D/C IV right hand DC'd due to patients restlessness. IV catheter fully intact. Pressure dressing applied to site. Patient tolerated well.
--- NOTE | 2020-01-31 11:12 | NUR ---
Respiratory note: ATTEMPT TO CONTACT FOR PT'S POST CPAP TRIAL ABG AND WEANING PARAMETERS. LEFT RESULTS ON VOICE MESSAGE. RN NOTIFY OF CALL.
[2020-01-31] MEDS: methylPREDNISolone SOD SUCC 40 MG/ML VL IV SCH ×2 (11:15→23:15)
--- NOTE | 2020-01-31 11:35 | NUR ---
PAGED paged regarding cpap trial ABG, weaning parameters, and soft wrist restraints due to patients ALOC and risk for falls. Awaiting call back.
--- NOTE | 2020-01-31 11:45 | NUR ---
MD VISIT at bedside assessing patient. MD reviewing medical chart and speaking with family regarding plan of care.
--- NOTE | 2020-01-31 11:45 | NUR ---
FAMILY I called daughter Nona, updated her on patient status and plan of care.
--- NOTE | 2020-01-31 11:45 | NUR ---
RESTRAINTS Restraint orders obtained from . Family notified.
--- NOTE | 2020-01-31 11:50 | NUR ---
RETURNED PAGE returned page. aware of ABG and weaning parameters. Orders obtained for extubation. RT aware.
--- NOTE | 2020-01-31 12:05 | NUR ---
Respiratory note: PT WAS EXTUBATED PER ORDERS. PT WAS PLACED ON COOL AEROSOL 8L 30% FIO2. PT TOLERATING WELL. BREATH SOUNDS ARE CLEAR NO STRIDOR NOTED. WILL CONTINUE TO MONITOR PT.
--- NOTE | 2020-01-31 12:05 | NUR ---
EXTUBATE Patient extubated by RT per MD order. Patient placed on 30% Fio2 cool mist mask. Oxygen saturation 98%, no signs of distress or stridor noted. All other vital signs remain stable at this time. Bed alarm in place, bed locked in lowest position with call light within reach. Patient instructed to call for assistance. Will continue to monitor and reorient patient.
[2020-01-31] MEDS ORDERED: ASPI-498 PO (13:42)
[2020-01-31] MEDS ORDERED: GABA300C10 PO (13:43)
[2020-01-31] MEDS ORDERED: OXYC325T14 PO (13:45)
[2020-01-31] MEDS ORDERED: AZEL0.1S (13:48)
[2020-01-31] MEDS ORDERED: FLUO1TAB14 PO (13:49)
[2020-01-31] MEDS ORDERED: SITA50TA PO (13:49)
[2020-01-31] MEDS ORDERED: [UNRECOGNIZED DRUG - CODE] PO (13:56)
[2020-01-31] MEDS ORDERED: ALEN1TAB32 PO (13:59)
[2020-01-31] MEDS ORDERED: ATOR40TA52 PO (14:01)
[2020-01-31] MEDS ORDERED: METO-158 PO (14:06)
[2020-01-31] MEDS ORDERED: MIDO2.5T2 PO (14:08)
--- NOTE | 2020-01-31 14:10 | NUR ---
MD VISIT at bedside.
[2020-01-31] MEDS ORDERED: OME20T PO (14:13)
--- NOTE | 2020-01-31 14:14 | NUR ---
PAGED paged regarding elevated HR. Awaiting call back for orders.
[2020-01-31] MEDS ORDERED: NICOTINE 21MG/24 HR TOPICAL PATCH TD ONE (14:15)
[2020-01-31] MEDS ORDERED: INSU1INJ5 SC (14:15)
[2020-01-31] MEDS ORDERED: METOPROLOL TARTRATE 1MG/1ML-5ML VIAL IV ONE (14:15)
--- NOTE | 2020-01-31 14:16 | NUR ---
AFIB RVR ordered one time dose metoprolol for elevated heart rate 120-150's Afib RVR.
[2020-01-31] MEDS ORDERED: INSU100I44 SC (14:17)
[2020-01-31] MEDS ORDERED: TRAZ50TA2 PO (14:19)
[2020-01-31] MEDS ORDERED: POTA-180 PO (14:24)
[2020-01-31] MEDS ORDERED: PIOG1TAB36 PO (14:27)
[2020-01-31] MEDS ORDERED: CLOT1CRE79 EX (14:29)
[2020-01-31] MEDS ORDERED: OMEP-260 PO (14:30)
[2020-01-31] MEDS ORDERED: NORT10CA PO (14:31)
[2020-01-31] MEDS ORDERED: LACTCAP35 PO (14:42)
--- NOTE | 2020-01-31 14:46 | NUR ---
CARES Partial linen change completed. Skin reassessment performed. Patient able to assist partially with turning. Patient still not following commands or verbalizing responses. Patient does not appear to be in any distress. Patient repositioned in bed and positioned on side. Alarms in place, bed locked in lowest position, call light within reach. Will continue to monitor and reassess.
[2020-01-31] MEDS ORDERED: NYS5LQ MT (14:47)
[2020-01-31] MEDS ORDERED: POM NEB (15:02)
[2020-01-31] MEDS ORDERED: METOPROLOL TARTRATE 1MG/1ML-5ML VIAL IV PRN (15:15)
--- NOTE | 2020-01-31 15:17 | NUR ---
RETURNED PAGE aware of elevated heart rate. Orders received PRN medication for heart rate greater than 120.
--- NOTE | 2020-01-31 16:10 | NUR ---
FAMILY Spoke with patients daughter. She states that her mother does not smoke cigarettes. If she did it was before they were born or as small children. Nicotine patch removed at this time.
--- NOTE | 2020-01-31 16:25 | NUR ---
MD VISIT at bedside. MD aware of elevated heart rate but patient in no distress. Orders obtained for one time dose of Digoxin.
[2020-01-31] MEDS ORDERED: DIGOXIN (250MCG/ML) 2 ML AMPULE IV ONE (17:00)
--- NOTE | 2020-01-31 19:12 | NUR ---
REPORT Report given to Bony WESLEY, care endorsed.
--- NOTE | 2020-01-31 19:45 | NUR ---
OPENING SHIFT REPORT RECEIVED FROM DAY SHIFT RN. ASSUMED CARE OF PATIENT. PATIENT IN BED WATCHING TV WITH NO SIGNS OR SYMPTOMS OF SOB, PAIN OR DISTRESS. CURRENTLY ON 2L 02 NASAL CANNULA, 02 SAT - 98%. BILATERAL SOFT RESTRAINTS IN PLACE - SKIN AND CIRCULATION REASSESSED AT THIS TIME. RIGHT CHEST IV, LEFT SHOULDER IV, RIGHT HAND IV, AND LEFT WRIST IV - CLEAN/DRY/INTACT. LAUREANO HUNG TO GRAVITY. BED IN LOWEST POSITION, SIDE RAILS UP X2, CALL LIGHT WITHIN REACH. WILL CONTINUE TO MONITOR.
--- NOTE | 2020-01-31 20:00 | NUR ---
SPOKE WITH FAMILY ( BASILIO ) PASSWORD VERIFIED. UPDATE FAMILY ON PATIENT STATUS. ALL QUESTIONS AND CONCERNS ANSWERED AND ADDRESSED.
[2020-01-31] MEDS: hydrALAZINE HCL 20 MG/ML VL IV PRN (20:03)
--- NOTE | 2020-01-31 20:30 | NUR ---
BILATERAL SOFT RESTRAINTS REMOVED BED ALARM SET. PATIENT APPEARS TO BE COMFORTABLY RESTING IN BED WATCHING TV. PATIENT DOES NOT APPEAR RESTLESS OR TRYING TO GET OUT OF BED AT THIS TIME. WILL CONTINUE TO MONITOR.
--- NOTE | 2020-01-31 21:15 | NUR ---
PAGED DR. SINHA LEFT VOICEMAIL
--- NOTE | 2020-01-31 21:50 | NUR ---
SWALLOW EVALUATED PATIENT TOLERATED SWALLOWING SPOONS OF APPLE SAUCE WITH NO COUGHING. WILL CONTINUE TO MONITOR.
--- NOTE | 2020-01-31 22:30 | NUR ---
DR. SINHA SPOKE WITH DR. SINHA OVER THE PHONE. UPDATED HIM ON PATIENT STATUS AND CURRENT VITAL SIGNS. MADE AWARE THAT PATIENT IS STILL CONFUSED AND TRYING TO GET OUT OF BED. RECEIVED ORDERS TO DOWNGRADE PATIENT TO KAROL WITH SITTER. NOTED AND CARRIED OUT. WILL CONTINUE TO MONITOR.
--- NOTE | 2020-01-31 22:35 | NUR ---
RIGHT UPPER CHEST IV AND LEFT WRIST IV REMOVED / MITTENS PLACED ON PATIENT. CATHETER INTACT. MINIMAL BLEEDING, DRESSED WITH GAUZE AND TEGADERM. PATIENT REMOVED LEFT WRIST IV. CATHETER INTACT. DRESSED WITH GAUZE AND COBAND. MITTENS PLACED ON PATIENT. WILL CONTINUE TO MONITOR.
[2020-02-01] VITALS (29 sets, daily range): BP systolic 128–167; BP diastolic 50–79
[2020-02-01] MEDS: InsuLIN REG 1unit/0.01ml Soln (100units/ml) SC SCH ×7 (00:23→23:57)
[2020-02-01] MEDS: ACCU-CHEK COMFORT CURVE STRIP VI SCH ×7 (00:23→23:54)
--- NOTE | 2020-02-01 02:51 | NUR ---
LEFT FOREARM IV 22G PLACED
--- NOTE | 2020-02-01 03:20 | NUR ---
MORNING CARE PERFORMED PM CARE WITH CHG WIPES AND WASH CLOTHS TO THE FACE. PARTIAL LINEN CHANGE AND GOWN CHANGE. SKIN REASSESSED AT THIS TIME. REPOSITIONED FOR COMFORT. LAUREANO CARE PERFORMED. BED IN LOWEST POSITION, SIDE RAILS UP X2. CALL LIGHT WITHIN REACH. WILL CONTINUE TO MONITOR.
[2020-02-01 04:23] LABS: Basophils # (auto) 0 10 ^3/uL (0-0.2); Eosinophils # (auto) 0 10 ^3/uL (0-0.8); Hematocrit 37.1 % (36.0-46.0); Hemoglobin 12.1 g/dL (12.2-16.2); Lymphocytes # (auto) 0.5 10 ^3/uL (0.4-5.4); Lymphocytes % (auto) 3.1 % (10.0-50.0); Mean Corpuscular Hemoglobin 28.8 pg (28.0-32.0); Mean Corpuscular Hgb Conc. 32.6 g/dL (32.0-36.0); Mean Corpuscular Volume 88.2 fL (80.0-100.0); Monocytes # (auto) 1.1 10 ^3/uL (0-1.3); Monocytes % (auto) 6.2 % (0.0-12.0); Neutrophils # (auto) 15.5 10 ^3/uL (1.6-8.6); Neutrophils % (auto) 90.7 % (37.0-80.0); Platelet Count (auto) 279 10^3/uL (140-450); Red Blood Cells 4.21 10^6/uL (4.0-5.20); Red Cell Distribution Width 16.5 % (11.8-14.3); White Blood Cell 17.1 10^3/uL (4.4-10.8)
[2020-02-01 04:36] LABS: Albumin 3.3 g/dL (3.4-5.0); Calcium 8.7 mg/dL (8.5-10.1); Magnesium 2.9 mg/dL (1.6-2.6); Potassium 3.5 mmol/L (3.5-5.1)
[2020-02-01 04:40] LABS: BUN/Creatinine Ratio 33.3; Bilirubin, Total 0.9 mg/dL (0.2-1.0); Total Protein 7.9 g/dL (6.4-8.2)
[2020-02-01] MEDS: IPRATROPIUM BROM 0.5 MG/2.5ML INH SOL NEB SCH ×3 (05:47→22:17)
[2020-02-01] MEDS: ALBUTEROL SULF 2.5 MG/0.5ML(0.5%) NEB SOLN NEB SCH ×3 (05:47→22:17)
[2020-02-01] MEDS: PROPOFOL 100 ML IV SCH (05:55)
--- NOTE | 2020-02-01 07:00 | NUR ---
PATIENT TRANSFERRED TO ROOM 264 WITH ICU BULLDOZER/LOADER/COMPACTOR/SCRAPER AND CCT.
--- NOTE | 2020-02-01 07:15 | NUR ---
END OF SHIFT REPORT GIVEN TO DAY SHIFT RN. CARE ENDORSED.
--- NOTE | 2020-02-01 08:00 | NUR ---
Opening Shift Note Assumed care of patient, awake and oriented to self, re- orientation done. No S/S of distress/SOB or pain. Patient saturation 97% at 2 LPM oxgen via nasal cannula. See interventions for complete assessment. Bed locked on low position, side rails up x2, bed alarms on at all times, call chávez within reach, instructed on POC and to call for assist PRN, will continue to monitor for changes Q1hr and PRN.
--- NOTE | 2020-02-01 08:01 | NUR ---
BELA Marshall at bedside for patient safety.
[2020-02-01] MEDS ORDERED: levoFLOXacin 750MG 150 ML IV SCH (09:30)
--- NOTE | 2020-02-01 10:15 | NUR ---
Dr Geller at bedside, updated on patient's status. Patient seen and examined. Plan to transfer patient to Telemetry. Will carry out new orders.
[2020-02-01] MEDS: ASPirin 81 mg TAB NG SCH (11:12)
[2020-02-01] MEDS: LINEZOLID 600MG/300ML 300 ML IV SCH ×2 (11:12→21:35)
[2020-02-01] MEDS: PIPERACILLIN-TAZOB 3.375GM 100 ML IV SCH ×3 (11:12→23:54)
[2020-02-01] MEDS: AMIODARONE HCL 200 MG TAB NG SCH ×2 (11:13→21:36)
[2020-02-01] MEDS: ENOXAPARIN SOD 80 MG/0.8ML SYRINGE SC SCH (11:13)
[2020-02-01] MEDS: NICOTINE 21MG/24 HR TOPICAL PATCH TD SCH (11:14)
[2020-02-01] MEDS: methylPREDNISolone SOD SUCC 40 MG/ML VL IV SCH ×2 (11:15→21:36)
[2020-02-01] MEDS: hydrALAZINE HCL 20 MG/ML VL IV PRN ×2 (12:18→18:06)
--- NOTE | 2020-02-01 12:47 | NUR ---
Patient trying to get out of bed, accidentally pulled out LT forearm IV. Bed locked on low position, side rails up x2, bed alarms on at all times, Joanna [employer]PERVIS[employer] at bedside for safety. Will continue to monitor.
--- NOTE | 2020-02-01 12:54 | NUR ---
Received call from patient's daughter Nona who's able to provide password. Updated on patient's status and POC, verbalized understanding. All questions and concerns addressed.
--- NOTE | 2020-02-01 13:07 | NUR ---
SWALLOW EVALUATED. PATIENT HAS NO TEETH OR DENTURES. PATIENT ALOC BUT ABLE TO TOLERATE PUREE DIET TEXTURE WITH NECTAR THICKENED LIQUIDS WITH NO OVERT SIGNS OR SYMPTOMS OF ASPIRATION. NURSING NOTIFIED.
--- NOTE | 2020-02-01 13:15 | NUR ---
Patient out of bed, ambulated with Tameka PT, fall precautions in place. Patient ambulated 20 feet max assist.
--- NOTE | 2020-02-01 14:24 | NUR ---
Nutrition Followup Notes Pt wt is 80.0 kg Pt was awake with a sitter at bedside when rounded this am. Pt is aphasic d/t recent extubation. Pt is NPO pending swallow eval today, with no distress or complaints. Will continue to closely monitor pertinent labs, PO intake and skin status prn. Will followup in 2-3 days. Please review recommendations noted below. NOTE: Recalculated Estimated Protein needs for pt if NOT on HD based on IBW of 50k-45gms/day (0.8-0.9 g/kg IBW) Est energy needs 5656-7280 kcal (25-30 kcal/kg IBW) Est protein needs 80-113g (1-1.4g/kg BW COPD). Will reassess prn LABS: Gluc 224 H, BUN 52 H, Cr 1.56 H, GFR 34 L (Stg 3), Alb 3.3 L GI: Last BM unknown per RN doc. BS: 15 mod risk. Please refer to wound assessment report for full details. PES: Problem Inadequate oral intake r/t current medical condition, intubated aeb current NPO status Problem Altered nutrition related labs r/t chronic medical conditions aeb elevated RFTs, hyperglycemia Comments 1) Monitor NPO status, if NPO >48 consider alternate nutrition 2) if alternate nutrition consider TPN or EN with Nepro Carb steady 40 ml/hr 3) When medically feasible advance to po intake with CCHO, Renal Std if pt with HD, Renal Specific 40g Pro, 2gNa, K2 grams, low phos diet if pt NOT with HD 4) Continue current plan of care
--- NOTE | 2020-02-01 15:41 | NUR ---
assessment Patient is a 84 year old female who is confused. Prior to admission patient lived home with her daughter Nona. Nona informed me patients PCP is Dr Meza. Per Nona patient came to ER for shortness of breath and was admitted. Patient has Sepsis. Patient may need home health on discharge. Nona is refusing SNF. Patient will return home with her on discharge. Per Nona there is no safety issues in the home. Patient has a fww, wheelchair, bedside commode, shower chair and oxygen for home use. I informed Nona patients discharge needs to be determined prior to discharge. Nona verbalized understanding and agreed to discharge plan home. Addendum: 02/01/20 at 1546 by Emilie CULVER Amended: Links added.
--- NOTE | 2020-02-01 16:30 | NUR ---
IV insertion IV access obtained, via clean sterile technique by inserting 22 gauge catheter at RT hand after two attempts. IV secured properly. No trauma to site. Patient tolerated procedure well.
--- NOTE | 2020-02-01 19:40 | NUR ---
Opening note Report received from shay WESLEY. Patient A/Ox1, only alert to self. Patient connected to continuous monitor. Patient on 2L nasal cannula with SPO2 at 95%. Physical assessment done-see interventions. Skin check done-optifoam in place to sacrum as preventative. Cassidy catheter in place draining clear yellow urine to gravity. Sitter at bedside for patient safety. Fall precautions in place, call light within reach.
--- NOTE | 2020-02-01 20:25 | NUR ---
Report Gave SBAR/report to cable television installer Nars. All questions answered. Patient to be transferred to [facility]
--- NOTE | 2020-02-01 20:55 | NUR ---
Transferred to tele floor Patient taken to room 217B via bed, with all personal belongings and hard chart, placed on tele box. Patient accompanied by two staff members. No signs of distress at time of departure.
[2020-02-01] MEDS: MORPHINE SULF INJ 2 MG/ML SYRINGE 1ML IV PRN (21:37)
[2020-02-02] MEDS: MORPHINE SULF INJ 2 MG/ML SYRINGE 1ML IV PRN (02:09)
[2020-02-02] MEDS: ACCU-CHEK COMFORT CURVE STRIP VI SCH ×4 (05:13→16:00)
[2020-02-02] MEDS: InsuLIN REG 1unit/0.01ml Soln (100units/ml) SC SCH ×4 (05:14→16:00)
[2020-02-02] MEDS: ALBUTEROL SULF 2.5 MG/0.5ML(0.5%) NEB SOLN NEB SCH ×2 (05:59→14:12)
[2020-02-02] MEDS: IPRATROPIUM BROM 0.5 MG/2.5ML INH SOL NEB SCH ×2 (05:59→14:12)
[2020-02-02 06:02] LABS: Basophils # (auto) 0 10 ^3/uL (0-0.2); Basophils % (auto) 0.2 % (0.0-2.0); Eosinophils # (auto) 0 10 ^3/uL (0-0.8); Hematocrit 35.1 % (36.0-46.0); Hemoglobin 11.8 g/dL (12.2-16.2); Lymphocytes # (auto) 0.5 10 ^3/uL (0.4-5.4); Lymphocytes % (auto) 4.4 % (10.0-50.0); Mean Corpuscular Hemoglobin 29.7 pg (28.0-32.0); Mean Corpuscular Hgb Conc. 33.6 g/dL (32.0-36.0); Mean Corpuscular Volume 88.3 fL (80.0-100.0); Monocytes # (auto) 0.8 10 ^3/uL (0-1.3); Monocytes % (auto) 7.2 % (0.0-12.0); Neutrophils # (auto) 9.7 10 ^3/uL (1.6-8.6); Neutrophils % (auto) 88.2 % (37.0-80.0); Platelet Count (auto) 234 10^3/uL (140-450); Red Blood Cells 3.97 10^6/uL (4.0-5.20); Red Cell Distribution Width 16.5 % (11.8-14.3)
[2020-02-02 06:17] LABS: Calcium 8.8 mg/dL (8.5-10.1); Magnesium 2.6 mg/dL (1.6-2.6); Potassium 3.7 mmol/L (3.5-5.1)
--- NOTE | 2020-02-02 07:30 | NUR ---
Opening Shift Note Assuming care of patient at this time. Patient is awake. Patient is not responding verbally to any questions. Bed is locked and lowered with side rails up x2. Instructed patient on the plan of care for today and to call for assistance as needed. Call light within reach. Will continue to round hourly and as needed. Sitter at bedside for safety.
[2020-02-02] MEDS: PIPERACILLIN-TAZOB 3.375GM 100 ML IV SCH ×2 (08:46→17:00)
[2020-02-02 09:00] VITALS: BP 162/69
[2020-02-02] MEDS: NICOTINE 21MG/24 HR TOPICAL PATCH TD SCH (10:00)
[2020-02-02] MEDS: ASPirin 81 mg TAB NG SCH (10:00)
[2020-02-02] MEDS: ENOXAPARIN SOD 80 MG/0.8ML SYRINGE SC SCH ×2 (10:00→10:34)
[2020-02-02] MEDS: LINEZOLID 600MG/300ML 300 ML IV SCH (10:32)
[2020-02-02] MEDS: methylPREDNISolone SOD SUCC 40 MG/ML VL IV SCH (10:32)
[2020-02-02] MEDS: AMIODARONE HCL 200 MG TAB NG SCH ×2 (10:34→10:45)
--- NOTE | 2020-02-02 11:17 | NUR ---
I faxed home health order to [facility].
[2020-02-02 13:00] VITALS: BP 153/80
[2020-02-02] MEDS: hydrALAZINE HCL 20 MG/ML VL IV PRN (13:13)
[2020-02-02 14:11] VITALS: BP 146/82
[2020-02-02 14:35] VITALS: BP 146/82
--- NOTE | 2020-02-02 16:02 | NUR ---
I spoke with Ml at [facility], she said [facility] will follow patient-service to start within 24-48 hours-I provided this information to nurse Bennett as well as the phone number for [facility] [phone].
--- NOTE | 2020-02-02 17:00 | NUR ---
Discharge Discharge instructions given as ordered. Encourage to follow up with PMD as instructed. All questions and concerns addressed. Patient verbalized understanding. Medication reconciliation form completed and copy given to patient. IV removed with catheter intact, pressure dressing applied, villalta catheter removed. Telemetry unit returned to ICU. Patient taken to vehicle via wheelchair with all personal belongings, accompanied by staff and family member. No distress noted at time of departure. Informed daughter of discharge information over the phone. [facility] to see patient 24-48 hours. Phone number written on discharge paperwork.
== END 2020-02-02 17:00 | disposition home health service (06) | DRG 871 ==
LOC: EDBD 04:32 → ER 04:32 → ICU WEST 04:33 → DOU IN ICU 02-01 07:18 → TELE-CENTR 02-01 21:00
PROVIDERS: ADMIT Internal Medicine; ATTEND Internal Medicine Geriatric Medicine
PROC: 5A1945Z Respiratory Ventilation, 24-96 Consecutive Hours (ICD-10-PCS; principal; 2020-01-29)
PROC: 0BH17EZ Insertion of Endotracheal Airway into Trachea, Via Natural or Artificial Opening (ICD-10-PCS; 2020-01-29)
DX: A41.9 Sepsis, unspecified organism (principal); J96.21 Acute and chronic respiratory failure with hypoxia; I50.33 Acute on chronic diastolic (congestive) heart failure; J18.9 Pneumonia, unspecified organism; I21.4 Non-ST elevation (NSTEMI) myocardial infarction; G93.41 Metabolic encephalopathy; N18.6 End stage renal disease; I13.2 Hypertensive heart and chronic kidney disease with heart failure and with stage 5 chronic kidney disease, or end stage renal disease; I42.9 Cardiomyopathy, unspecified; J44.0 Chronic obstructive pulmonary disease with (acute) lower respiratory infection; J44.1 Chronic obstructive pulmonary disease with (acute) exacerbation; J98.11 Atelectasis; N39.0 Urinary tract infection, site not specified; E66.9 Obesity, unspecified; E78.5 Hyperlipidemia, unspecified; F41.9 Anxiety disorder, unspecified; K76.9 Liver disease, unspecified; I25.10 Atherosclerotic heart disease of native coronary artery without angina pectoris; E11.22 Type 2 diabetes mellitus with diabetic chronic kidney disease; I48.91 Unspecified atrial fibrillation; E11.65 Type 2 diabetes mellitus with hyperglycemia; I48.0 Paroxysmal atrial fibrillation; Z79.899 Other long term (current) drug therapy; Z82.5 Family history of asthma and other chronic lower respiratory diseases; Z87.891 Personal history of nicotine dependence; Z95.810 Presence of automatic (implantable) cardiac defibrillator; Z03.818 Encounter for observation for suspected exposure to other biological agents ruled out; Z90.710 Acquired absence of both cervix and uterus; Z82.49 Family history of ischemic heart disease and other diseases of the circulatory system; Z83.3 Family history of diabetes mellitus; Z80.8 Family history of malignant neoplasm of other organs or systems; Z79.84 Long term (current) use of oral hypoglycemic drugs; Z79.4 Long term (current) use of insulin; Z84.1 Family history of disorders of kidney and ureter; Z82.3 Family history of stroke; Z68.32 Body mass index [BMI] 32.0-32.9, adult
CPT/HCPCS: 31500; 36415; 36600; 51702; 70450; 71045; 80048; 80053; 80061; 80307; 81001; 82550; 82805; 82962; 83036; 83605; 83735; 83880; 84443; 84484; 85025; 85379; 85610; 85652; 85730; 86141; 87040; 87070; 87081; 87086; 87088; 87186; 87205; 87804; 87880; 92610; 93306; 93971; 94003; 94640; 96365; 96366; 96367; 96368; 96375; 97116; 97163; 97530; G0378; J0330; J0696; J1815; J1956; J2250; J2543; J2704; J7060

== ENCOUNTER 2020-02-18 18:47 | Inpatient (IN) | payer OTHER ==
[~2020-02-18] VITALS: Ht 160 cm; Wt 71.7 kg
[~2020-02-18 18:47] MED LIST changes: +ALEN1TAB32 PO; -ALEN70SO OR; +ASPI-498 PO; -ATOR10TA52 PO; +ATOR40TA52 PO; +AZEL0.1S; -BETH50TA2 PO; -BIOTPOW17; +CLOT1CRE79 EX; -DRON400T PO; -FLOXETINE; +FLUO1TAB14 PO; -GABA100C9 PO; +GABA300C10 PO; -HYDR-531 PO; +INSU100I44 SC; +INSU1INJ5 SC; -INSUINJ47 SC; -INSUINJ48 SC; +LACTCAP35 PO; -LOSA25TA38 PO; -METF-370 PO; +METO-158 PO; -METO25TA5 PO; +MIDO2.5T2 PO; -MONT10TA23 PO; +NORT10CA PO; +NYS5LQ MT; -OME20GT PO; +OMEP-260 PO; +OXYC325T14 PO; +PIOG1TAB36 PO; +POM NEB; +POTA-180 PO; -PREG20SO PO; +SITA50TA PO; +TRAZ50TA2 PO; -WARF4TAB33 PO; -ZALE10CA44 PO; +[UNRECOGNIZED DRUG - CODE] PO
[2020-02-18] MEDS ORDERED: ACETAMINOPHEN 500 MG TAB PO ONE (19:00)
[2020-02-18] MEDS ORDERED: dilTIAZem 25 MG/5 ML VIAL IV ONE (19:30)
[2020-02-18 20:06] LABS: Basophils # (auto) 0 10 ^3/uL (0-0.2); Basophils % (auto) 0.4 % (0.0-2.0); Eosinophils # (auto) 0.1 10 ^3/uL (0-0.8); Eosinophils % (auto) 1.1 % (0.0-7.0); Hematocrit 35.8 % (36.0-46.0); Hemoglobin 11.5 g/dL (12.2-16.2); Lymphocytes # (auto) 0.8 10 ^3/uL (0.4-5.4); Lymphocytes % (auto) 8.3 % (10.0-50.0); Mean Corpuscular Hgb Conc. 32.2 g/dL (32.0-36.0); Mean Corpuscular Volume 90.1 fL (80.0-100.0); Monocytes # (auto) 0.7 10 ^3/uL (0-1.3); Monocytes % (auto) 7.4 % (0.0-12.0); Neutrophils # (auto) 8.2 10 ^3/uL (1.6-8.6); Neutrophils % (auto) 82.8 % (37.0-80.0); Nucleated Red Blood Cells % 0.1 %; Platelet Count (auto) 143 10^3/uL (140-450); Red Blood Cells 3.97 10^6/uL (4.0-5.20); Red Cell Distribution Width 16.8 % (11.8-14.3); White Blood Cell 9.9 10^3/uL (4.4-10.8)
[2020-02-18 20:24] LABS: INR 1.05 (0.9-1.15); Partial Thromboplastin Time 25.5 sec (23.64-32.05)
[2020-02-18 20:28] LABS: Albumin 3.2 g/dL (3.4-5.0); Calcium 8.5 mg/dL (8.5-10.1); Potassium 4.1 mmol/L (3.5-5.1)
[2020-02-18 20:34] LABS: BUN/Creatinine Ratio 12.8; Bilirubin, Total 0.6 mg/dL (0.2-1.0); Total Protein 7.5 g/dL (6.4-8.2)
[2020-02-18 20:56] LABS: Urine Bacteria NONE SEEN /hpf (None Seen); Urine Blood Negative /uL (Negative); Urine Specific Gravity 1.007 (1.001-1.035); Urine WBC 21 /hpf (0 - 5)
[2020-02-19] MEDS ORDERED: diphenhdrAMINE HCL 25 MG CAP PO PRN (01:45)
[2020-02-19] MEDS ORDERED: traZODone HCL 50 MG TAB PO PRN (01:45)
[2020-02-19] MEDS ORDERED: METOPROLOL TARTRATE 1MG/1ML-5ML VIAL IV SCH (01:45)
[2020-02-19] MEDS ORDERED: ACETAMINOPHEN 500 MG TAB PO PRN (01:45)
[2020-02-19] MEDS ORDERED: DEXTROSE (50%) 50ML SYRG IV PRN (01:45)
[2020-02-19 02:09] VITALS: BP 104/43
[2020-02-19] MEDS ORDERED: MORPHINE SULF INJ 2 MG/ML SYRINGE 1ML IV PRN (02:30)
[2020-02-19] MEDS ORDERED: NITROGLYCERIN 0.4 MG SL TAB SL PRN (02:30)
[2020-02-19] MEDS: ACCU-CHEK COMFORT CURVE STRIP VI SCH ×5 (04:16→20:08)
[2020-02-19] MEDS: InsuLIN REG 1unit/0.01ml Soln (100units/ml) SC SCH ×5 (04:17→20:06)
[2020-02-19] MEDS ORDERED: ALBUTEROL SULF HFA 90MCG INH 200DOSE IN SCH (06:00)
[2020-02-19] MEDS: GABAPENTIN 300 MG CAP PO SCH ×3 (06:00→22:18)
[2020-02-19] MEDS: PANTOPRAZOLE 40 MG TAB PO SCH (06:51)
[2020-02-19 06:53] VITALS: BP 123/66
[2020-02-19 08:00] VITALS: BP 142/105
[2020-02-19] MEDS: ASPirin-EC 81 mg tab PO SCH (09:49)
[2020-02-19] MEDS: ENOXAPARIN SOD 30 MG/0.3 ML SYRINGE SC SCH (09:50)
[2020-02-19] MEDS: METOPROLOL TARTRATE 25 MG TAB PO SCH ×2 (09:50→22:18)
[2020-02-19] MEDS: POTASSIUM CHL 20 Meq TABLET PO SCH (09:50)
[2020-02-19] MEDS ORDERED: ASCORBIC ACID 1,000 MG TAB PO SCH ×2 (10:00)
[2020-02-19] MEDS ORDERED: ZINC SULFATE 220mg CAP or TAB PO SCH (10:00)
[2020-02-19] MEDS ORDERED: METOLAZONE 2.5 MG PO SCH (10:00)
[2020-02-19] MEDS: FENOFIBRATE 160MG TAB PO SCH (10:00)
[2020-02-19] MEDS ORDERED: CHOLECALCIFEROL 2000 UNIT PO SCH (10:00)
[2020-02-19] MEDS ORDERED: DOXYCYCLINE 100MG/250ML 250 ML IV SCH (10:00)
[2020-02-19] MEDS ORDERED: POTASSIUM CHLORIDE 20 MEQ PO SCH (10:00)
[2020-02-19] MEDS ORDERED: PATIENTS OWN MEDICATION (Fluoxetine HCl (Pmdd) (Fluoxetine HCl) 20 MG) PO SCH (10:00)
[2020-02-19] MEDS ORDERED: ASCORBIC ACID PO SCH (10:00)
[2020-02-19] MEDS: INSULIN DETEMIR SC SCH ×2 (10:00→22:00)
[2020-02-19] MEDS ORDERED: CHOLECALCIFEROL (VITD3) 1,000IU=25mCg TAB PO SCH ×2 (10:00)
[2020-02-19] MEDS: DIGOXIN 0.125 MG TAB PO SCH (11:01)
[2020-02-19] MEDS: BUMETANIDE 1 MG TAB PO SCH (11:02)
[2020-02-19] MEDS: FLUoxetine HCL 20 MG CAP PO SCH (11:02)
[2020-02-19] MEDS: FERROUS SULFATE 325 MG TAB PO SCH ×2 (11:02→22:17)
[2020-02-19] MEDS: metOLazone 5 MG TAB PO SCH (11:05)
[2020-02-19] MEDS: ALPRAZolam 0.25 MG TAB PO SCH (11:05)
[2020-02-19] MEDS ORDERED: ALBUTEROL SULF 2.5 MG/0.5ML(0.5%) NEB SOLN NEB PRN ×2 (11:45→16:30)
[2020-02-19 12:00] VITALS: BP 148/69
[2020-02-19] MEDS ORDERED: DOXYCYCLINE 100 MG TAB/CAP PO SCH (12:00)
[2020-02-19] MEDS: INSULIN LISPRO (HUMAN) 100 UNITS/ML ML SC SCH ×2 (12:51→17:25)
[2020-02-19 16:30] VITALS: BP 140/54
[2020-02-19] MEDS ORDERED: AZITHROMYCIN 250 MG TAB PO ONE (16:30)
[2020-02-19] MEDS ORDERED: cefTRIAXone 1GM/50ML D5W 50 ML IV ONE (16:30)
[2020-02-19] MEDS ORDERED: LORazepam 2MG/ML-1ML VIAL IV PRN ×2 (16:45)
[2020-02-19] MEDS ORDERED: INSU100I4 SC (17:35)
[2020-02-19] MEDS ORDERED: LEVEMIR SC ×2 (17:35)
[2020-02-19] MEDS: IPRATROPIUM BROM 0.5 MG/2.5ML INH SOL NEB SCH ×2 (19:13→22:24)
[2020-02-19] MEDS: ALBUTEROL SULF 2.5 MG/0.5ML(0.5%) NEB SOLN NEB SCH ×2 (19:13→22:24)
[2020-02-19 22:00] VITALS: BP 118/68
[2020-02-19] MEDS ORDERED: PATIENTS OWN MEDICATION (Atorvastatin Calcium 1 TAB) PO SCH (22:00)
[2020-02-19] MEDS: ATORVASTATIN 20 MG TAB PO SCH (22:17)
[2020-02-19] MEDS: NORTRIPTYLINE HCL 10 MG CAP PO SCH (22:19)
[2020-02-20] MEDS: ACCU-CHEK COMFORT CURVE STRIP VI SCH ×6 (00:21→20:09)
[2020-02-20] MEDS: InsuLIN REG 1unit/0.01ml Soln (100units/ml) SC SCH ×6 (00:31→20:11)
[2020-02-20] MEDS: ALBUTEROL SULF 2.5 MG/0.5ML(0.5%) NEB SOLN NEB SCH ×6 (02:00→22:17)
[2020-02-20] MEDS: IPRATROPIUM BROM 0.5 MG/2.5ML INH SOL NEB SCH ×6 (02:00→22:17)
[2020-02-20 05:00] VITALS: BP 122/60
[2020-02-20] MEDS: PANTOPRAZOLE 40 MG TAB PO SCH (05:37)
[2020-02-20] MEDS: GABAPENTIN 300 MG CAP PO SCH ×3 (05:37→21:47)
[2020-02-20 05:44] LABS: Basophils # (auto) 0 10 ^3/uL (0-0.2); Basophils % (auto) 0.4 % (0.0-2.0); Eosinophils # (auto) 0.1 10 ^3/uL (0-0.8); Hematocrit 31.7 % (36.0-46.0); Hemoglobin 10.6 g/dL (12.2-16.2); Lymphocytes # (auto) 1.3 10 ^3/uL (0.4-5.4); Lymphocytes % (auto) 20.6 % (10.0-50.0); Mean Corpuscular Hemoglobin 29.5 pg (28.0-32.0); Mean Corpuscular Hgb Conc. 33.3 g/dL (32.0-36.0); Mean Corpuscular Volume 88.4 fL (80.0-100.0); Monocytes # (auto) 0.5 10 ^3/uL (0-1.3); Monocytes % (auto) 7.9 % (0.0-12.0); Neutrophils # (auto) 4.2 10 ^3/uL (1.6-8.6); Neutrophils % (auto) 69.1 % (37.0-80.0); Platelet Count (auto) 137 10^3/uL (140-450); Red Blood Cells 3.59 10^6/uL (4.0-5.20); Red Cell Distribution Width 16.3 % (11.8-14.3); White Blood Cell 6.1 10^3/uL (4.4-10.8)
[2020-02-20] MEDS ORDERED: ALENDRONATE 70 MG PO SCH (06:00)
[2020-02-20 06:01] LABS: Albumin 2.8 g/dL (3.4-5.0); Calcium 8.6 mg/dL (8.5-10.1); Magnesium 2.2 mg/dL (1.6-2.6); Potassium 3.4 mmol/L (3.5-5.1)
[2020-02-20 06:06] LABS: Bilirubin, Total 0.8 mg/dL (0.2-1.0); Total Protein 6.8 g/dL (6.4-8.2)
[2020-02-20] MEDS: INSULIN LISPRO (HUMAN) 100 UNITS/ML ML SC SCH ×3 (06:43→17:44)
[2020-02-20 08:00] VITALS: BP 128/64
[2020-02-20 08:31] VITALS: BP 128/52
[2020-02-20] MEDS: ENOXAPARIN SOD 30 MG/0.3 ML SYRINGE SC SCH (09:15)
[2020-02-20] MEDS: cefTRIAXone 1GM/50ML D5W 50 ML IV SCH (09:15)
[2020-02-20] MEDS: ALPRAZolam 0.25 MG TAB PO SCH (09:16)
[2020-02-20] MEDS: POTASSIUM CHL 20 Meq TABLET PO SCH (09:16)
[2020-02-20] MEDS: ASPirin-EC 81 mg tab PO SCH (09:16)
[2020-02-20] MEDS: METOPROLOL TARTRATE 25 MG TAB PO SCH ×2 (09:16→21:46)
[2020-02-20] MEDS: AZITHROMYCIN 250 MG TAB PO SCH (09:16)
[2020-02-20] MEDS: BUMETANIDE 1 MG TAB PO SCH (09:17)
[2020-02-20] MEDS: INSULIN DETEMIR SC SCH ×2 (09:17→21:47)
[2020-02-20] MEDS: FLUoxetine HCL 20 MG CAP PO SCH (09:17)
[2020-02-20] MEDS: FERROUS SULFATE 325 MG TAB PO SCH ×2 (09:17→21:46)
[2020-02-20] MEDS: FENOFIBRATE 160MG TAB PO SCH (10:00)
[2020-02-20] MEDS ORDERED: POTASSIUM CHL 20 Meq TABLET PO ONE (11:30)
[2020-02-20 13:00] VITALS: BP 141/58
[2020-02-20 16:31] VITALS: BP 102/70
[2020-02-20] MEDS: ATORVASTATIN 20 MG TAB PO SCH (21:46)
[2020-02-20] MEDS: NORTRIPTYLINE HCL 10 MG CAP PO SCH (21:47)
[2020-02-20 22:00] VITALS: BP 121/70
[2020-02-21] MEDS: InsuLIN REG 1unit/0.01ml Soln (100units/ml) SC SCH ×4 (00:22→12:07)
[2020-02-21] MEDS: ACCU-CHEK COMFORT CURVE STRIP VI SCH ×4 (00:26→12:08)
[2020-02-21] MEDS: IPRATROPIUM BROM 0.5 MG/2.5ML INH SOL NEB SCH ×4 (01:55→13:48)
[2020-02-21] MEDS: ALBUTEROL SULF 2.5 MG/0.5ML(0.5%) NEB SOLN NEB SCH ×4 (01:55→13:48)
[2020-02-21 05:00] VITALS: BP 135/74
[2020-02-21 06:22] LABS: Basophils # (auto) 0 10 ^3/uL (0-0.2); Basophils % (auto) 0.5 % (0.0-2.0); Eosinophils # (auto) 0.2 10 ^3/uL (0-0.8); Eosinophils % (auto) 2.6 % (0.0-7.0); Hematocrit 33.7 % (36.0-46.0); Hemoglobin 11.2 g/dL (12.2-16.2); Lymphocytes # (auto) 1.6 10 ^3/uL (0.4-5.4); Lymphocytes % (auto) 22.8 % (10.0-50.0); Mean Corpuscular Hemoglobin 29.2 pg (28.0-32.0); Mean Corpuscular Hgb Conc. 33.1 g/dL (32.0-36.0); Mean Corpuscular Volume 88.2 fL (80.0-100.0); Monocytes # (auto) 0.5 10 ^3/uL (0-1.3); Monocytes % (auto) 7.4 % (0.0-12.0); Neutrophils # (auto) 4.7 10 ^3/uL (1.6-8.6); Neutrophils % (auto) 66.7 % (37.0-80.0); Nucleated Red Blood Cells % 0.1 %; Platelet Count (auto) 163 10^3/uL (140-450); Red Blood Cells 3.82 10^6/uL (4.0-5.20); Red Cell Distribution Width 16.8 % (11.8-14.3)
[2020-02-21 06:30] LABS: Potassium 3.6 mmol/L (3.5-5.1)
[2020-02-21 06:37] LABS: BUN/Creatinine Ratio 17.4; Calcium 9.4 mg/dL (8.5-10.1); Magnesium 2.2 mg/dL (1.6-2.6)
[2020-02-21] MEDS: INSULIN LISPRO (HUMAN) 100 UNITS/ML ML SC SCH ×2 (06:57→12:07)
[2020-02-21] MEDS: PANTOPRAZOLE 40 MG TAB PO SCH (06:57)
[2020-02-21] MEDS: GABAPENTIN 300 MG CAP PO SCH ×2 (06:57→13:58)
[2020-02-21 08:39] VITALS: BP 123/60
[2020-02-21] MEDS: cefTRIAXone 1GM/50ML D5W 50 ML IV SCH (08:46)
[2020-02-21] MEDS: FENOFIBRATE 160MG TAB PO SCH (10:00)
[2020-02-21] MEDS: INSULIN DETEMIR SC SCH (10:00)
[2020-02-21] MEDS: ENOXAPARIN SOD 30 MG/0.3 ML SYRINGE SC SCH (10:17)
[2020-02-21] MEDS: ALPRAZolam 0.25 MG TAB PO SCH (10:18)
[2020-02-21] MEDS: METOPROLOL TARTRATE 25 MG TAB PO SCH (10:18)
[2020-02-21] MEDS: POTASSIUM CHL 20 Meq TABLET PO SCH (10:19)
[2020-02-21] MEDS: BUMETANIDE 1 MG TAB PO SCH (10:19)
[2020-02-21] MEDS: AZITHROMYCIN 250 MG TAB PO SCH (10:19)
[2020-02-21] MEDS: DIGOXIN 0.125 MG TAB PO SCH (10:19)
[2020-02-21] MEDS: FERROUS SULFATE 325 MG TAB PO SCH (10:20)
[2020-02-21] MEDS: FLUoxetine HCL 20 MG CAP PO SCH (10:20)
[2020-02-21] MEDS: ASPirin-EC 81 mg tab PO SCH (10:20)
[2020-02-21] MEDS: metOLazone 5 MG TAB PO SCH (10:20)
[2020-02-21 11:31] VITALS: BP 123/60
[2020-02-21 13:00] VITALS: BP 113/57
== END 2020-02-21 15:15 | disposition home or self-care (01) | DRG 871 ==
LOC: EDBD 18:47 → ER 18:52 → TELE 18:53 → TELE-E-ADS 02-19 06:59 → TELE-EAST 02-19 17:59
PROVIDERS: ADMIT Hospitalist; ATTEND Internal Medicine Geriatric Medicine
DX: A41.9 Sepsis, unspecified organism (principal); I21.4 Non-ST elevation (NSTEMI) myocardial infarction; I50.43 Acute on chronic combined systolic (congestive) and diastolic (congestive) heart failure; G93.41 Metabolic encephalopathy; J18.9 Pneumonia, unspecified organism; J96.20 Acute and chronic respiratory failure, unspecified whether with hypoxia or hypercapnia; N18.6 End stage renal disease; N39.0 Urinary tract infection, site not specified; J44.1 Chronic obstructive pulmonary disease with (acute) exacerbation; I13.2 Hypertensive heart and chronic kidney disease with heart failure and with stage 5 chronic kidney disease, or end stage renal disease; I48.92 Unspecified atrial flutter; J44.0 Chronic obstructive pulmonary disease with (acute) lower respiratory infection; E11.22 Type 2 diabetes mellitus with diabetic chronic kidney disease; I48.91 Unspecified atrial fibrillation; R79.89 Other specified abnormal findings of blood chemistry; E78.5 Hyperlipidemia, unspecified; E66.9 Obesity, unspecified; F41.9 Anxiety disorder, unspecified; Z79.899 Other long term (current) drug therapy; Z80.9 Family history of malignant neoplasm, unspecified; Z82.3 Family history of stroke; Z82.49 Family history of ischemic heart disease and other diseases of the circulatory system; Z82.5 Family history of asthma and other chronic lower respiratory diseases; Z83.3 Family history of diabetes mellitus; Z90.710 Acquired absence of both cervix and uterus; Z95.0 Presence of cardiac pacemaker; Z20.828 Contact with and (suspected) exposure to other viral communicable diseases; R56.9 Unspecified convulsions; Z68.27 Body mass index [BMI] 27.0-27.9, adult
CPT/HCPCS: 36415; 70450; 71045; 80048; 80053; 80162; 81001; 82962; 83605; 83735; 83880; 84443; 84484; 85025; 85379; 85610; 85730; 87040; 87070; 87081; 87086; 87088; 87186; 87804; 87880; 93005; 93970; 94640; 97163; 97530; G0378; J0696; J1815